=== PATIENT | female | born 1995 | race American Indian/Alaskan Native ===

== ENCOUNTER 2020-02-27 08:35 | Outpatient (CLI) | payer BC, OTHER | END 2020-02-27 08:36 | disposition home or self-care (01) | LOC: LABHHL 08:35 | PROVIDERS: ATTEND Surgery | DX: N63.23 Unspecified lump in the left breast, lower outer quadrant (principal) | CPT/HCPCS: 88305; 88341; 88342 ==

== ENCOUNTER 2020-05-26 09:37 | Outpatient (CLI) | payer BC ==
--- NOTE | 2020-05-26 10:37 | Mammography Report ---
DIGITAL DIAGNOSTIC MAMMOGRAM WITH CAD CONVENTIONAL, 05/26/2020 CLINICAL INFORMATION / INDICATION: MALIGNANT NEOPLASM OF LOWER OUTER QUAD OF LT BREAST TECHNIQUE: Digital left mammographic imaging was performed. This examination was interpreted with the benefit of Computer-aided Detection analysis. COMPARISON: 02/26/2020, 02/04/2020 FINDINGS: Breast Density: The breast is heterogeneously dense, which may obscure small masses. The patient's known left breast cancer in the 6:00 position is unchanged in size and appearance. A bi opsy clip is again seen within the mass. No other significant abnormality. IMPRESSION: Stable left breast cancer. Follow up recommendation: Clinical exam BI-RADS Category 6: Known Biopsy-Proven Malignancy. A "normal" or negative report should not discourage follow up or biopsy of a clinically significant f inding. A written summary of these findings will be mailed to the patient. The patient will be entered into a mammography reporting system which will generate a reminder letter for the patient's next appointmen t at the appropriate interval. According to the [employer], yearly mammograms are recommended starting at age 40 and continuing as long as a woman is in good health. Breast MRI is recommended for women with an tao roximately 20-25% or greater lifetime risk of breast cancer, including women with a strong family his tory of breast or ovarian cancer and women who have been treated for Hodgkin's disease. Signer Name: Raffy Wan MD Signed: 05/26/2020 10:32 AM Workstation Name: [id number]
== END 2020-05-26 09:38 | disposition home or self-care (01) ==
LOC: SPVWC 09:37
PROVIDERS: ATTEND Surgery
DX: C50.912 Malignant neoplasm of unspecified site of left female breast (principal); N63.24 Unspecified lump in the left breast, lower inner quadrant

== ENCOUNTER 2020-07-14 08:04 | Observation (INO) | payer BC ==
[2020-07-14] MEDS ORDERED: ceFAZolin/STERILE WATER 2 GM/20 ML SYRINGE IV NR (10:00)
[2020-07-14] MEDS: LACTATED RINGERS 1,000 ML IV SCH (10:10)
--- NOTE | 2020-07-14 10:25 | Anesthesia Consultation ---
Anesthesia Consult and Med Hx Date of service: 07/14/20 - Airway Anesthetic Teeth Evaluation: Good ROM Head & Neck: Adequate Mental/Hyoid Distance: Adequate Mallampati Class: Class II Intubation Access Assessment: Good - Pulmonary Exam CTA: Yes - Cardiac Exam Cardiac Exam: RRR - Pre-Operative Health Status ASA Pre-Surgery Classification: ASA1 Proposed Anesthetic Plan: General Nerve Block: ESB david - Central Nervous System Hx Psychiatric Problems: No - Other Systems Hx Cancer: Yes (H/o chemo)
--- NOTE | 2020-07-14 10:26 | Anesthesia Day of Surgery ---
Anesthesia Day of Surgery - Day of Surgery Patient Examined: Yes Patient H&P Reviewed: Yes Patient is NPO: Yes
[2020-07-14] MEDS ORDERED: fentaNYL 100 MCG/2 ML INJ IV NR (10:27)
[2020-07-14] MEDS ORDERED: dexAMETHasone 4 MG/ML VIAL ONE (10:29)
[2020-07-14] MEDS ORDERED: ACETAMINOPHEN 500 MG TAB PO NR (10:29)
[2020-07-14] MEDS ORDERED: BUPIVACAINE-EPINEPHRINE/PF 0.5%-1:200,000 (10 ML) VIAL INFILTRATI ONE (10:29)
[2020-07-14] MEDS ORDERED: LIDOCAINE (1%) 10 MG/1 ML VIAL 20 ML MDV INFILTRATI NR (10:30)
[2020-07-14] MEDS ORDERED: MIDAZOLAM 5 MG/5 ML INJ MDV IV ONE (10:30)
[2020-07-14] MEDS ORDERED: ACETAMINOPHEN 500 MG TAB ONE (10:31)
[2020-07-14] MEDS ORDERED: CELECOXIB 200 MG CAP ONE (10:31)
[2020-07-14] MEDS ORDERED: CELECOXIB 200 MG CAP PO NR (11:00)
[2020-07-14] MEDS ORDERED: SCOPOLAMINE TRANSDERMAL PATCH 72 HR TD NR (11:00)
[2020-07-14] MEDS ORDERED: BUPIVACAINE/PF (0.5%) 5 MG/1 ML 10 ML VIAL INFILTRATI NR (11:00)
[2020-07-14] MEDS ORDERED: MIDAZOLAM 2 MG/2 ML INJ IV NR (11:00)
[2020-07-14] MEDS ORDERED: ceFAZolin 1 GM VIAL ONE (13:13)
[2020-07-14] MEDS ORDERED: BACITRACIN 50,000 UNIT VIAL ONE ×2 (13:13→14:01)
[2020-07-14] MEDS ORDERED: GENTAMICIN 40 MG/ML VIAL 2 ML ONE ×2 (13:14→14:00)
[2020-07-14] MEDS ORDERED: BUPIVACAINE/PF (0.25%) 2.5 MG/ML 30 ML VIAL INFILTRATI ONE (13:15)
[2020-07-14] MEDS ORDERED: ePHEDrine SULFATE 50 MG/1 ML INJ ONE (13:30)
[2020-07-14] MEDS ORDERED: SODIUM CHLORIDE P/F VIAL 10 ML 10 ML ONE (13:39)
[2020-07-14] MEDS ORDERED: SODIUM CHLORIDE 0.9% 1000 ML 1,000 ML ONE (13:39)
[2020-07-14] MEDS ORDERED: METHYLENE BLUE 50 MG/10 ML AMP ONE (13:40)
[2020-07-14] MEDS ORDERED: WATER FOR INJ Sterile (PF) 10 ML ONE (13:40)
[2020-07-14] MEDS ORDERED: SUCCINYLCHOLINE CHLORIDE 200 MG/10 ML INJ MDV ONE (13:43)
[2020-07-14] MEDS ORDERED: dexAMETHasone 20 MG/5 ML VIAL ONE (13:43)
[2020-07-14] MEDS ORDERED: NEOSTIGMINE 10MG/10 ML INJ MDV ONE (13:43)
[2020-07-14] MEDS ORDERED: PHENYLEPHRINE/NS 1,000 MCG/10 ML SYRINGE (OR USE) IV ONE (13:43)
[2020-07-14] MEDS ORDERED: GLYCOPYRROLATE 0.4 MG/2 ML INJ ONE (13:43)
[2020-07-14] MEDS ORDERED: LIDOCAINE MPF (2%) 20 MG/1 ML VIAL 5 ML ONE (13:43)
[2020-07-14] MEDS ORDERED: fentaNYL 100 MCG/2 ML INJ ONE ×2 (13:43→13:55)
[2020-07-14] MEDS ORDERED: ROCURONIUM 50 MG/5 ML INJ IV ONE (13:43)
[2020-07-14] MEDS ORDERED: ONDANSETRON 4 MG/2 ML INJ ONE (13:43)
[2020-07-14] MEDS ORDERED: propofoL 200 MG/20 ML VIAL IV ONE (13:43)
[2020-07-14] MEDS ORDERED: WATER FOR IRRIG STERILE 1,500 ML BOTTLE IR ONE (16:50)
[2020-07-14] MEDS ORDERED: ceFAZolin 1 GM VIAL IV ONE (16:51)
[2020-07-14] MEDS ORDERED: BACITRACIN 50,000 UNIT VIAL IR ONE (16:51)
[2020-07-14] MEDS ORDERED: METHYLENE BLUE 50 MG/10 ML AMP IRRIGATION ONE (16:52)
[2020-07-14] MEDS ORDERED: GENTAMICIN 40 MG/ML VIAL 2 ML IV ONE (16:52)
[2020-07-14] MEDS ORDERED: HYDROmorphone 1 MG/1 ML INJ ONE ×2 (17:26→18:04)
--- NOTE | 2020-07-14 17:54 | Operative Report ---
Operative Report Operative Report: Operative Report: Date of Service: July 14, 2020 Preoperative diagnosis: Left breast cancer of the lower outer quadrant Postoperative diagnosis: Same Procedure: Left total mastectomy with sentinel lymph node biopsy and right total mastectomy Surgeon: Farnaz Zambrano M.D. Wire Machine Operator: Nabila Corona M.D. Anesthesia: Gen. Findings: Left breast clip present within left total mastectomy; x3 sentinel lymph nodes identified and negative for malignancy on frozen section of patho logy Complications: None Drains: per Plastic Surgery Estimated blood loss: 100 cc Disposition: Plastic surgery proceeded with bilateral tissue expanders Indications for operative procedure: This is a 24-year-old lady with Stage I-II left breast cancer of the lower outer quadrant, ER/NM/Her-2 positive. She recently completed neoadjuvant chemotherapy of /. She wished to proceed with a bilateral mastectomy followed by immediate bilateral tissue roofer apprentice placement. She understands to role of possible adjuvant XRT pending final pathology and she will complete adjuvant chemotherapy. She wished to proceed with the above procedure. Procedure in detail: The patient was taken to the operating room and was placed supine. Gen. anesthesia was administered. The left nipple was injected with r adioisotope and 1 cc of methylene blue. Bilateral chest and axillas were prepped and draped in the normal sterile operative fashion. Timeout was performed. Avendaño pattern mastectomy incision markings were made and left mastectomy incision encompassing known cancer around the 4:00 position NAC. Ultrasound was used as well for incision markings. Attention was taken toward the right breast first. First began raising of the superior flap to the level of the clavicle superiorly and posteriorly to the pectoralis muscle. Port was noted and unharmed. Followed by raising of the medial flap to the level of the sternum and posteriorly to the pectoralis muscle. Followed by raising of the lateral flap to the level of the latissimus dorsi muscle and taken down posteriorly. Followed by raising of the inferior flap to the level of the inframammary fold taken posterior to the pectoralis muscle. The mastectomy/breast was removed from the pectoralis muscle without incident. The specimen was appropriately marked and sent to pathology. Hemostasis was obtained. The chest wall cavity was irrigated. Attention was taken towards the left breast. A gamma probe was inserted into the axilla to identify the sentinel lymph node location with uptake noted. Skin markings were made to include the area of known cancer. A skin incision was made with a 10 blade knife and dissection taken down to the subcutaneous tissues. First began raising of the superior flap to the level of the clavicle superiorly and posteriorly to the pectoralis muscle. Followed by raising of the medial flap to the level of the sternum and posteriorly to the pectoralis muscle. Followed by raising of the lateral flap to the level of the latissimus dorsi muscle and taken down posteriorly. The gamma probe was inserted into the axilla, the axillary fascia was opened and 3 SLNS were identified that were dissected free and sent to pathology; blue dye present. All SLNs sent to pathology with findings negative for malignancy on frozen section. Then proceeded with raising of the inferior flap to the level of the inframammary fold taken posterior to the pectoralis muscle. The mastectomy/breast was removed from the pectoralis muscle without incident. The specimen was appropriately marked and sent to radiology with findings of breast clip present as well as breast mass and sent to pathology. Hemostasis was obtained. The chest wall cavity was irrigated. She tolerated surgery very well. Plastic surgery then proceeded with bilateral tissue roofer apprentice placement.
[2020-07-14] MEDS ORDERED: ACETAMINOPHEN 325 MG TAB PO PRN (18:03)
[2020-07-14] MEDS ORDERED: oxyCODONE /ACETAMINOPHEN 5-325MG TAB PO PRN (18:03)
[2020-07-14] MEDS ORDERED: ONDANSETRON 4 MG/2 ML INJ IV PRN (18:03)
[2020-07-14] MEDS ORDERED: diphenhydrAMINE 25 MG CAP PO PRN (18:03)
[2020-07-14] MEDS ORDERED: METOCLOPRAMIDE 10 MG TAB PO PRN (18:03)
[2020-07-14] MEDS ORDERED: HYDROmorphone 2 MG TAB PO PRN (18:03)
--- NOTE | 2020-07-14 18:03 | Short Stay Summary ---
Short Stay Documentation Date of service: 07/14/20 - History H&P: obtained from office - Allergies and Medications Current Medications: Allergies No Known Allergies Allergy (Unverified 07/07/20 11:35) Home Medications Medication Instructions Recorded Confirmed Last Taken Type RX: No Known Home Medications [No 07/07/20 07/07/20 Unknown History Reported Home Medications] Active Medications Acetaminophen (Acetaminophen 500 Mg Tab) 1,000 mg PO ONCE NR Stop: 07/14/20 23:00 Last Admin: 07/14/20 10:37 Dose: 1,000 mg Documented by: Cefazolin Sodium (Cefazolin/Sterile Water 2 Gm/20 Ml Syringe) 2 gm IV PREOP NR Stop: 07/14/20 23:00 Lactated Ringer's (Lactated Ringers) 1,000 mls @ 100 mls/hr IV DIRECT MEEK Last Admin: 07/14/20 10:10 Dose: 100 mls/hr Documented by: Midazolam HCl (Midazolam 2 Mg/2 Ml Inj) 2 mg IV PREOP NR Stop: 07/14/20 23:59 Scopolamine (Scopolamine Transdermal Patch 72 Hr) 1 each TD PREOP NR Stop: 07/14/20 23:00 Last Admin: 07/14/20 10:30 Dose: 1 each Documented by: - Brief post op/procedure progress note Date of procedure: 07/14/20 Pre-op diagnosis: Left breast cancer LOQ Post-op diagnosis: same Procedure: Left total mastectomy with SLNB and right total mastectomy Anesthesia: GETA Findings: left breast clip and mass present; x3 slns and negative for malignancy Surgeon: JUANCARLOS HERNANDEZ Estimated blood loss: other (100 cc) Pathology: list Specimen disposition: to lab Condition: stable - Disposition Condition at discharge: Good Disposition: DC/TX-02 SHRT-TRM GEN HOSP IP Short Stay Discharge Plan Activity: other (no heavy lifting) Diet: regular Wound: keep clean and dry Follow up with: JUANCARLOS HERNANDEZ MD [Staff Physician] - 7 Days
[2020-07-14] MEDS ORDERED: LACTATED RINGERS 1,000 ML IV SCH (18:15)
[2020-07-14] MEDS ORDERED: ESMOLOL 100 MG/10 ML INJ IV ONE (19:00)
--- NOTE | 2020-07-14 19:19 | Operative Report ---
PREOPERATIVE DIAGNOSIS: Left breast cancer. POSTOPERATIVE DIAGNOSIS: Left breast cancer. PROCEDURES: 1. Bilateral breast reconstruction using tissue expanders. 2. Bilateral breast reconstruction using biological mesh. 3. Bilateral breast reconstruction using adjacent tissue transfer total area 128 square cm. 4. Application of LASHON negative pressure wound VAC device to bilateral breasts for both postoperative wound healing. SURGEON: Dr. Ashutosh Baltazar TRIMMING ASSEMBLER: Dr. Corona ANESTHESIA: General. OPERATIVE INDICATIONS: This is a 24-year-old female with left-sided breast cancer, who presented to my office for breast reconstruction options. She is referred by Dr. Zambrano. Plan was for bilateral mastectomy and we discussed different options including autologous versus implant-based reconstruction. We decided on a tissue air intercept controller based reconstruction. The patient came to my office the day before for preoperative markings for a Avendaño pattern mastectomy. Dr. Zambrano took the patient to the operating room and began her portion of the operation performing the bilateral mastectomies. I came in after the mastectomies were complete and began the reconstruction. We did a prepectoral tissue air intercept controller reconstruction starting on the back table. We used a [employer] ultra high profile 650 mL tissue expanders. On the left side, the serial number [id number], on the right serial number [id number]. We filled in with 200 mL of saline. We then wrapped them using FlexHD pliable perforated 16 x 20 cm. On the left, serial #[id number], on the right serial [id number]. We did a full wrap with the FlexHD using 2-0 PDS to secure it. We then soaked them in triple antibiotic and Betadine. Once Dr. Zambrano was done, we began the reconstruction. I sutured the composite implant to the pectoralis major muscle circumferentially. We then placed 15 and a 19-Vietnamese round Rosendo drain. Prior to closing, we did utilize the inferior dermal glandular flap that we left ring up for coverage. This was secured using 2-0 Vicryl sutures to both the composite implant and the chest wall. We then closed with 2-0 Vicryl for the inverted T junction, 3-0 Monocryl deep dermals and then a 3-0 Monocryl running subcuticular barbed suture on the skin and then Dermabond. The exact same procedure was performed on the left side as well. We then applied LASHON negative pressure wound VAC devices to both breasts for postoperative wound healing. Her drains were dressed with Biopatches and Tegaderm. Total the epithelialized adjacent tissue transfer area was 128 square cm with approximately 64 square cm on each side, an area of about 8 x 8 cm. ESTIMATED BLOOD LOSS: Less than 50 mL. COMPLICATIONS: None. SPECIMENS: None. FINDINGS: Bilateral mastectomy defects. [facility]# [id number] A/NTS
--- NOTE | 2020-07-14 19:24 | Post Anesthesia Evaluation ---
- Post Anesthesia Evaluation Patient Participated: Yes Airway Patent: Yes Stable Respiratory Function: Yes Nausea/Vomiting: No Temp > 96.8F: Yes Pain Manageable: Yes Adequeate Hydration: Yes Anesthesia Complications: No Block Receding Appropriately: Yes Patient on Ventilator: No
[2020-07-14] MEDS ORDERED: DOCUSATE SODIUM 100 MG CAP PO SCH (22:00)
[2020-07-15] MEDS: MORPHINE 2 MG/1 ML INJ IV PRN ×2 (00:57→05:48)
[2020-07-15] MEDS: ceFAZolin/NS 1 GM/50 ML 1 GM/50 ML BAG IV SCH ×2 (01:09→09:30)
[2020-07-15] MEDS: LACTATED RINGERS 1,000 ML IV SCH (06:12)
--- NOTE | 2020-07-15 08:56 | Progress Note ---
Assessment and Plan This is a 24-year-old premenopausal -[place] lady with stage I-II left breast cancer, postoperative day 1 left total mastectomy with sentinel lymph node biopsy and right total mastectomy followed by immediate bilateral tissue screening placement. 1. No acute events overnight. 2. Bilateral chest incisions healing well. 3. BABITA drain education. 4. OOB. 5. D/C planning for today. Subjective Date of service: 07/15/20 Principal diagnosis: Left breast cancer lower outer quadrant Interval history: This is a 24-year-old premenopausal -[place] lady with stage I-II left breast cancer, postoperative day 1 left total mastectomy with sentinel lymph node biopsy and right total mastectomy followed by immediate bilateral tissue screening placement. Objective - Constitutional Vitals: Vital Signs - 12hr 07/14/20 07/15/20 07/15/20 23:40 04:35 08:31 Temperature 98.2 F 99.6 F Pulse Rate 126 H 143 H 82 Respiratory 20 22 20 Rate Blood Pressure 141/81 134/62 Blood Pressure 144/72 [Right] O2 Sat by Pulse 99 96 99 Oximetry General appearance: Present: no acute distress - EENT Eyes: PERRL, EOM intact ENT: hearing intact, clear oral mucosa, dentition normal Ears: bilateral: normal - Neck Neck: supple - Respiratory Respiratory effort: normal - Breasts Breasts: other (bilateral chest incisions healing well; PICCO dressing intact; BABITA drains with appropriate output) - Cardiovascular Rhythm: regular Extremities: no ischemia, pulses intact, pulses symmetrical, No edema, normal temperature, normal color, Full ROM - Gastrointestinal General gastrointestinal: Present: soft, non-tender, non-distended Rectal Exam: deferred - Genitourinary Female genitourinary: deferred - Integumentary Integumentary: clear, warm, dry - Musculoskeletal Musculoskeletal: strength equal bilaterally - Neurologic Neurologic: CNII-XII intact, focal deficits, moves all extremities - Psychiatric Psychiatric: appropriate mood/affect, intact judgment & insight, memory intact, cooperative Medications & Allergies - Medications Allergies/Adverse Reactions: Allergies No Known Allergies Allergy (Unverified 07/07/20 11:35) Home Medications: Home Medications Medication Instructions Recorded Confirmed Last Taken Type No Known Home Medications [No 07/07/20 07/07/20 Unknown History Reported Home Medications] Active Medications: Generic Name Dose Route Start Last Admin Trade Name Freq PRN Reason Stop Dose Admin Acetaminophen 650 mg 07/14/20 18:03 Acetaminophen 325 Mg Tab PO Q6H PRN Pain MILD(1-3)/Fever >100.5/VALERIO Diphenhydramine HCl 25 mg 07/14/20 18:03 Diphenhydramine 25 Mg Cap PO Q8H PRN Itching Docusate Sodium 100 mg 07/14/20 22:00 07/15/20 00:57 Docusate Sodium 100 Mg Cap PO 100 mg BID MEEK Administration Hydromorphone HCl 2 mg 07/14/20 18:03 Hydromorphone 2 Mg Tab PO Q6H PRN Pain , Severe (7-10) Lactated Ringer's 1,000 mls @ 100 mls/hr 07/14/20 10:00 07/15/20 06:12 Lactated Ringers IV 100 mls/hr DIRECT MEEK Administration Lactated Ringer's 1,000 mls @ 125 mls/hr 07/14/20 18:15 Lactated Ringers IV DIRECT MEEK Cefazolin Sodium 1 gm in 50 mls @ 100 mls/hr 07/14/20 19:00 07/15/20 01:09 Ancef/Ns 1 Gm/50 Ml IV 100 mls/hr Q8H MEEK Administration Protocol Metoclopramide HCl 10 mg 07/14/20 18:03 Metoclopramide 10 Mg Tab PO Q6H PRN Nausea And Vomiting Morphine Sulfate 2 mg 07/14/20 18:05 07/15/20 05:48 Morphine 2 Mg/1 Ml Inj IV 2 mg Q4H PRN Administration Pain, Moderate (4-6) Ondansetron HCl 4 mg 07/14/20 18:03 Ondansetron 4 Mg/2 Ml Inj IV Q8H PRN N/V unrelieved by Ortega Oxycodone/Acetaminophen 1 tab 07/14/20 18:03 Oxycodone /Acetaminophen 5-325mg Tab PO Q6H PRN Pain, Moderate (4-6) Sodium Chloride 10 ml 07/14/20 18:03 Sodium Chloride 0.9% 10 Ml Flush Syringe IV PRN PRN LINE FLUSH
[2020-07-15 16:45] VITALS: BP 134/89
--- NOTE | 2020-07-19 09:11 | Mammography Report ---
Left breast tissue specimen radiograph INDICATION: Excisional procedure today Specimen contains the grouped microcalcifications and biopsy clip as well as an adjacent density. IMPRESSION: Satisfactory specimen radiograph Signer Name: Kartik Trevino MD Signed: 07/19/2020 9:07 AM Workstation Name: [id number]
== END 2020-07-15 15:10 | disposition home or self-care (01) ==
LOC: OR 08:04 → OB 18:03
PROVIDERS: ADMIT Surgery; ATTEND Surgery
DX: C50.512 Malignant neoplasm of lower-outer quadrant of left female breast (principal); Z20.822 Contact with and (suspected) exposure to COVID-19; Z79.899 Other long term (current) drug therapy
CPT/HCPCS: 14000; 14001; 15777; 19303; 19357; 38525; 38792; 64450; 76098; 78800; 81025; 88307; 88309; 96365; 96366; 96375; 96376; A9541; C1789; G0378; J0330; J0690; J1100; J1170; J1580; J2250; J2270; J2370; J2405; J2704; J2710; J3010; J7030; J7120; Q4128; Q9968; U0003; 88331; 88333

== ENCOUNTER 2020-08-06 12:52 | Day surgery (SDC) | payer BC ==
[~2020-08-06 12:52] MED LIST: HYDROcodone/ACETAMINOPHEN 5-325 MG TAB PO PRN; HYDROmorphone 1 MG/1 ML INJ IV PRN; LACTATED RINGERS 1,000 ML IV SCH; MIDAZOLAM 2 MG/2 ML INJ IV NR; ONDANSETRON 4 MG/2 ML INJ IV PRN; SCOPOLAMINE TRANSDERMAL PATCH 72 HR TD NR
[2020-08-06] MEDS ORDERED: ceFAZolin/STERILE WATER 2 GM/20 ML SYRINGE IV NR (13:00)
--- NOTE | 2020-08-06 13:19 | Anesthesia Day of Surgery ---
Anesthesia Day of Surgery - Day of Surgery Patient Examined: Yes Patient H&P Reviewed: Yes Patient is NPO: Yes
--- NOTE | 2020-08-06 13:19 | Anesthesia Consultation ---
Anesthesia Consult and Med Hx Date of service: 08/06/20 - Airway Anesthetic Teeth Evaluation: Good ROM Head & Neck: Adequate Mental/Hyoid Distance: Adequate Mallampati Class: Class III Intubation Access Assessment: Probably Good (previous easy MAC 3) - Pre-Operative Health Status ASA Pre-Surgery Classification: ASA2 Proposed Anesthetic Plan: General - Pulmonary Hx Smoking: No Hx Respiratory Symptoms: No - Cardiovascular System Hx Hypertension: No - Central Nervous System CVA: No - Endocrine Hx Renal Disease: No Hx Liver Disease: No Hx Insulin Dependent Diabetes: No Hx Non-Insulin Dependent Diabetes: No Hx Thyroid Disease: No - Other Systems Hx Cancer: Yes (breast ca last chemo 05/2020) Hx Obesity: Yes (BMI 31) - Additional Comments Anesthesia Medical History Comments: No hx anesthetic complications. Hx breast ca s/p b/l mastectomy with reconstruction 06/2020 now with wound infection scheduled for washout.
[2020-08-06] MEDS ORDERED: propofoL 200 MG/20 ML VIAL IV ONE (13:28)
[2020-08-06] MEDS ORDERED: HYDROmorphone 1 MG/1 ML INJ ONE (13:28)
[2020-08-06] MEDS ORDERED: GENTAMICIN 40 MG/ML VIAL 2 ML ONE (13:38)
[2020-08-06] MEDS ORDERED: ceFAZolin 1 GM VIAL ONE (13:38)
[2020-08-06] MEDS ORDERED: BACITRACIN 50,000 UNIT VIAL ONE (13:39)
[2020-08-06] MEDS ORDERED: SODIUM CHLORIDE P/F VIAL 10 ML 20 ML ONE (13:39)
[2020-08-06] MEDS ORDERED: BACITRACIN 50,000 UNIT VIAL IR ONE (14:15)
[2020-08-06] MEDS ORDERED: GENTAMICIN 40 MG/ML VIAL 2 ML IV ONE (14:15)
[2020-08-06] MEDS ORDERED: ceFAZolin 1 GM VIAL IV ONE (14:15)
[2020-08-06] MEDS ORDERED: SODIUM CHLORIDE 0.9% IRR 1,500 ML BOTTLE IR ONE (14:15)
[2020-08-06] MEDS ORDERED: LIDOCAINE MPF (2%) 20 MG/1 ML VIAL 5 ML ONE (14:23)
[2020-08-06] MEDS ORDERED: PHENYLEPHRINE/NS 1,000 MCG/10 ML SYRINGE (OR USE) IV ONE (14:23)
[2020-08-06] MEDS ORDERED: ONDANSETRON 4 MG/2 ML INJ ONE (14:38)
[2020-08-06] MEDS ORDERED: METOPROLOL TARTRATE 5 MG/5 ML INJ IV ONE (14:51)
--- NOTE | 2020-08-06 14:56 | Operative Report ---
Operative Report Operative Report: General procedure information Date of procedure: 08/06/20 Surgeon: Ashutosh Baltazar MD Assistant Surveyor: none Pre-operative diagnosis: Left breast wound dehiscence, seroma, possible infection Post-operative diagnosis: Left breast wound dehiscence Procedure name(s): 1. Full thickness debridement of skin and subcutaneous tissue left breast 16cm2. 2. Incision and Drainage of postoperative complex fluid collection 3. Placement of LASHON negative pressure wound device Type of anesthesia: General Findings Left breast seroma, left breast skin necrosis, no signs of infection Procedure INDICATIONS: 24yF who underwent bilateral mastectomy and expanders three weeks ago. Now presents with serous drainage of fluid from left breast, no signs of infection, and obvious wound breakdown and skin necrosis. She was seen in the clinic in the AM and sent to the operating room that afternoon for an attempt at salvage. Discussed risks and benefits including early salvage possibly leading to saving the implant vs possible removal of implant if signs of infection DETAILS: Informed consent obtained, patient nelia to OR and placed supine, anesthesia administered. IV antibiotics given. Prepped and drape. Time out called. Full thickness excision of a 8 x 2cm are of necrotic skin was performed where the vertical limb had been on closure. Skin and subcutaneous tissue were debrided down to the mesh with a scalpel. We then saw the mesh was incorporating. No pus or vázquez of fluid. Cultures were taken. I incised the mesh and then we irrigated the implant pocket with triple antibiotic irrigation and betadine. A 15 argent[place] drain was placed. The mesh was closed with 2-0 vicryl as well as the incision. Then 3-0 monocryl deep dermal and then a running 3-0 nylon. We then applied a LASHON negative pressure wound vac device. The drain was dressed with biopatch and tegaderm. Patient tolerated procedure well and awakened from anesthesia and transported to PACU. She will be discharged home on oral antibiotics pending cultures. Pathology breast skin and cultures taken EBL: less than 10cc Complications: none
--- NOTE | 2020-08-06 16:13 | Post Anesthesia Evaluation ---
- Post Anesthesia Evaluation Patient Participated: Yes Airway Patent: Yes Stable Respiratory Function: Yes Nausea/Vomiting: No Temp > 96.8F: Yes Pain Manageable: Yes Adequeate Hydration: Yes Anesthesia Complications: No
[2020-08-06 16:42] VITALS: BP 127/73
== END 2020-08-06 16:55 | disposition home or self-care (01) ==
LOC: OR 12:52
PROVIDERS: ATTEND Plastic Surgery
DX: L76.34 Postprocedural seroma of skin and subcutaneous tissue following other procedure (principal); N64.89 Other specified disorders of breast; E66.9 Obesity, unspecified; Z85.3 Personal history of malignant neoplasm of breast; Z68.31 Body mass index [BMI] 31.0-31.9, adult; Y83.8 Other surgical procedures as the cause of abnormal reaction of the patient, or of later complication, without mention of misadventure at the time of the procedure; Y92.89 Other specified places as the place of occurrence of the external cause
CPT/HCPCS: 13160; 87075; 87116; 88304; J0690; J1170; J1580; J2250; J2370; J2405; J2704; J7120; 88305